=== PATIENT | male | born 2000 | race Caucasian/White ===

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

== ENCOUNTER 2019-08-15 13:04 | Emergency (ER) | payer OTHER ==
[~2019-08-15] VITALS: Ht 162.6 cm; Wt 70.6 kg
[~2019-08-15 13:04] MED LIST: OTEZ1TAB3 PO
[2019-08-15] MEDS ORDERED: APRI0.37 (13:16)
[2019-08-15] MEDS ORDERED: hydrOXYzine 50 MG TAB PO STA (13:53)
[2019-08-15] MEDS ORDERED: NS 1,000 ML IV ONE (14:00)
--- NOTE | 2019-08-15 14:19 | REP ---
Chest x-ray: Two views. History: Chest pain . Comparison study: No comparison study. . Findings: The lungs are well inflated and free of infiltrate. The pleural angles are sharp. The heart size is normal. Pulmonary vasculature is not increased. No significant bony abnormality is seen. Monitoring electrodes are seen. Impression: Negative chest x-ray. Electronically Signed by Markus Hernandez MD 08/15/2019 02:11 P
[2019-08-15 14:39] LABS: VENOUS BASE EXCESS 0.9 (-2.0-2.0); VENOUS HCO3 28.2 MEQ/L (23.0-27.0); VENOUS O2 SATURATION 82.9 % (60.0-80.0); VENOUS PARTIAL PRESSURE CO2 55.3 mmHg (38.0-50.0); VENOUS PARTIAL PRESSURE O2 48.4 mmHg (30.0-50.0); VENOUS PH 7.326 UNITS (7.330-7.430); VENOUS STANDARD HCO3 24.9 MEQ/L; VENOUS TOTAL CO2 29.9 MEQ/L (24.0-28.0)
[2019-08-15 14:45] LABS: BASO # 0.1 10^3/uL (0.0-0.2); BASO % 0.7 % (0.0-1.0); EOS # 0.2 10^3/uL (0.0-0.5); EOS % 2.9 % (0.0-3.0); HEMATOCRIT 44.9 % (42.0-52.0); HEMOGLOBIN 14.9 g/dl (13.5-17.5); LYMPH # 1.6 10^3/uL (1.5-5.0); LYMPH % 19.4 % (24.0-44.0); MEAN CORPUSCULAR HEMOGLOBIN 26.8 pg (27.0-33.0); MEAN CORPUSCULAR HGB CONC 33.2 g/dl (32.0-36.5); MEAN CORPUSCULAR VOLUME 80.8 fl (80.0-96.0); MONO % 11.9 % (0.0-5.0); NEUTROPHILS # 5.4 10^3/uL (1.5-8.5); NEUTROPHILS % 64.9 % (36.0-66.0); PLATELET COUNT, AUTOMATED 292 10^3/uL (150-450); RED BLOOD COUNT 5.56 10^6/uL (4.30-6.10); WHITE BLOOD COUNT 8.3 10^3/uL (4.0-10.0)
[2019-08-15 15:23] LABS: ALBUMIN 4.1 GM/DL (3.2-5.2); ALT/SGPT 33 U/L (12-78); BILIRUBIN,DIRECT 0.1 MG/DL (0.0-0.2); BILIRUBIN,TOTAL 0.5 MG/DL (0.2-1.0); BLOOD UREA NITROGEN 10 MG/DL (7-18); CALCIUM LEVEL 9.3 MG/DL (8.5-10.1); CARBON DIOXIDE LEVEL 28 MEQ/L (21-32); CHLORIDE LEVEL 104 MEQ/L (98-107); CK-MB VALUE MASS 1.3 NG/ML (<3.6); CPK CREATINE PHOSPHOKINASE 227 U/L (39-308); CREATININE FOR GFR 1.07 MG/DL (0.70-1.30); GLUCOSE, FASTING 89 MG/DL (70-100); LIPASE 67 U/L (73-393); MB/CK RELATIVE INDEX 0.57 (< OR =4); POTASSIUM SERUM 4.3 MEQ/L (3.5-5.1); SODIUM LEVEL 138 MEQ/L (136-145); TOTAL PROTEIN 7.8 GM/DL (6.4-8.2); TROPONIN I < 0.02 NG/ML (< 0.10)
[2019-08-15] MEDS ORDERED: HYDR-3363 PO (15:44)
[2019-08-15 15:47] VITALS: BP 116/57
--- NOTE | 2019-08-16 07:30 | ECGEPIP ---
[facility] - ED Test Date: 2019-08-15 Pat Name: HELLEN MCMAHON Department: Room: - Gender: Male Clinical Radiologist: ct : 2000 Requested By: ARACELIS CATHERINE Order Number: [id number] Reading MD: Hua Hopper Measurements Intervals [place] Rate: 104 P: 65 [place]: 179 QRS: 99 QRSD: 101 T: -19 QT: 319 QTc: 421 Interpretive Statements SINUS TACHYCARDIA RIGHT AXIS DEVIATION NONSPECIFIC ST & T-WAVE ABNORMALITY NO PRIORS FOR COMPARISON Electronically Signed on 08-16-2019 7:30:24 EDT by Hua Hopper
== END 2019-08-15 15:54 | disposition home or self-care (01) ==
LOC: M ED 13:04
DX: F41.0 Panic disorder [episodic paroxysmal anxiety] (principal); Z79.899 Other long term (current) drug therapy

== ENCOUNTER 2019-10-02 15:14 | Emergency (ER) | payer OTHER ==
[~2019-10-02] VITALS: Ht 162.6 cm; Wt 68.8 kg
[~2019-10-02 15:14] MED LIST changes: +APRI0.37; +HYDR-3363 PO
[2019-10-02] MEDS ORDERED: diazePAM 5 MG TAB PO ONE (16:15)
--- NOTE | 2019-10-02 16:22 | REP ---
Clinical: Chest pain . Comparison: 08/15/2019 . Technique: PA and lateral. Findings: The mediastinum and cardiac silhouette are normal. The lung jack are clear and without acute consolidation, effusion, or pneumothorax. The skeletal structures are intact and normal. Impression: 1. No acute cardiopulmonary process. Electronically Signed by Antonio Murrieta MD 10/02/2019 04:13 P
[2019-10-02 16:54] VITALS: BP 114/57
--- NOTE | 2019-10-03 00:01 | ECGEPIP ---
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
== END 2019-10-02 17:03 | disposition home or self-care (01) ==
LOC: M ED 15:14
DX: F41.9 Anxiety disorder, unspecified (principal); R07.89 Other chest pain; R06.02 Shortness of breath; R00.2 Palpitations; F17.210 Nicotine dependence, cigarettes, uncomplicated; Z79.899 Other long term (current) drug therapy